=== PATIENT | male | born 1940 | race Caucasian/White ===

== ENCOUNTER 2020-07-11 21:21 | Emergency (ER) | payer MEDICARE ==
[2020-07-11 22:00] LABS: HEMOGLOBIN 12.3 gm/dl (14.0-17.5); RED BLOOD COUNT 4.83 M/UL (4.20-5.50); WHITE BLOOD COUNT 8.7 K/UL (4.5-11.0)
== END 2020-07-12 02:45 | disposition short-term general hospital (02) ==
LOC: ER1 21:21
PROVIDERS: Emergency Medicine
DX: N17.9 Acute kidney failure, unspecified (principal); I71.4 Abdominal aortic aneurysm, without rupture; I48.91 Unspecified atrial fibrillation; E87.2 Acidosis; I25.2 Old myocardial infarction; I11.0 Hypertensive heart disease with heart failure; I50.9 Heart failure, unspecified; I25.10 Atherosclerotic heart disease of native coronary artery without angina pectoris; Z95.1 Presence of aortocoronary bypass graft
CPT/HCPCS: 51702; 71045; 80053; 81001; 82550; 82553; 83605; 83690; 83874; 83880; 84484; 85025; 85610; 85652; 85730; 86140; 87040; 93005; 96365; 96372; 96375; 99285